=== PATIENT | male | born 1965 | race Caucasian/White ===

== ENCOUNTER 2016-05-17 15:55 | Emergency (ER) | payer BC ==
[2016-05-17 16:00] VITALS: RESP 18
--- NOTE | 2016-05-17 17:13 | XR ---
EXAMINATION TYPE: XR ankle complete LT DATE OF EXAM: 05/17/2016 4:29 PM CLINICAL HISTORY: Pain and swelling laterally after injury. TECHNIQUE: Frontal, lateral and oblique images of the left ankle are obtained. COMPARISON: None. FINDINGS: There is no acute fracture/dislocation evident in the left ankle. The ankle mortise appea rs within normal limits. Moderate soft tissue swelling over lateral malleolus is noted. IMPRESSION: There is no acute fracture or dislocation in the left ankle.
--- NOTE | 2016-05-17 17:25 | ED ---
Lower Extremity Injury HPI - General Chief Complaint: Extremity Injury, Lower Stated Complaint: Ankle Pain Source: patient Mode of arrival: ambulatory Limitations: no limitations - History of Present Illness Initial Comments: Patient is a pleasant 50-year-old male who presents for evaluation after twisting his ankle and give it while he was getting off of a tractor. Past medical hx as below. Patient stated as he stepped off of a tractor with his left leg, his left foot twisted outward when he stepped on a divot in the ground. He had instant pain to his left ankle. He dropped to the ground. Denies any head trauma or loss of consciousness. Stated that he had to collect himself because the pain was so severe. He is unable to get up and put a little bit await on it may be related to the house. Has a history of ankle fracture in the past. He states that it was not as severe as when he broke his ankle. Denies any pain to the knee. Denies fever, chills, headache, changes in vision, URI symptoms, shortness breath, cough, chest pain, nausea, vomiting, diarrhea, pain or burning with urination. - Related Data Home Medications Medication Instructions Recorded Confirmed Atorvastatin [Lipitor] 40 mg PO DAILY 07/26/14 05/17/16 Esomeprazole Magnesium [NexIUM] 20 mg PO QAM 07/26/14 05/17/16 Fexofenadine HCl [Denice Allergy] 180 mg PO QAM 07/26/14 05/17/16 Tiotropium [place] [Spiriva] 1 cap INHALATION RT-DAILY PRN 07/26/14 05/17/16 Ibuprofen [Motrin] 800 mg PO Q6HR PRN 05/17/16 05/17/16 Allergies Allergy/AdvReac Type Severity Reaction Status Date / Time No Known Allergies Allergy Verified 05/17/16 17:04 Review of Systems ROS Statement: Those systems with pertinent positive or pertinent negative responses have been documented in the HPI. ROS Other: All systems not noted in ROS Statement are negative. Past Medical History Past Medical History: Asthma, Hyperlipidemia, Osteoarthritis (OA) History of Any Multi-Drug Resistant Organisms: None Reported Past Surgical History: Orthopedic Surgery, Tonsillectomy Additional Past Surgical History / Comment(s): SHOULDER SURGERY (UNK SIDE) Past Anesthesia/Blood Transfusion Reactions: Previous Problems w/ Anesthesia Additional Past Anesthesia/Blood Transfusion Reaction / Comment(s): BECAME AGITATED, TRIED TO EXTUBATE SELF. Past Psychological History: No Psychological Hx Reported Smoking Status: Former smoker Past Alcohol Use History: None Reported Past Drug Use History: None Reported - Past Family History Father Family Medical History: Cancer, Deep Vein Thrombosis (DVT) General Exam Limitations: no limitations General appearance: alert, in no apparent distress, other (No acute distress) Head exam: Present: atraumatic, normocephalic, normal inspection Eye exam: Present: normal appearance, PERRL, EOMI. Absent: scleral icterus, conjunctival injection, periorbital swelling ENT exam: Present: normal exam, mucous membranes moist Neck exam: Present: normal inspection. Absent: tenderness, meningismus, lymphadenopathy Respiratory exam: Present: normal lung sounds bilaterally. Absent: respiratory distress, wheezes, rales, rhonchi, stridor Cardiovascular Exam: Present: regular rate, normal rhythm, normal heart sounds. Absent: systolic murmur, diastolic murmur, rubs, gallop, clicks GI/Abdominal exam: Present: soft, normal bowel sounds. Absent: distended, tenderness, guarding, rebound, rigid Extremities exam: Present: normal capillary refill, joint swelling, other ( Swelling to the lateral aspect of his left ankle. Pain with palpation of the posterior distal fibula. No pain with rotation of the midfoot. No pain at the base of the fifth metatarsal. Limited extension at the left ankle but full flexion. No pain with palpation of the distal tibia.). Absent: tenderness, pedal edema, calf tenderness Back exam: Present: normal inspection Neurological exam: Present: alert, oriented X3, CN II-XII intact Psychiatric exam: Present: normal affect, normal mood Skin exam: Present: warm, dry, intact, normal color. Absent: rash Course Vital Signs 05/17/16 15:57 Temperature 98.3 F Pulse Rate 104 H Respiratory 18 Rate Blood Pressure 128/75 O2 Sat by Pulse 98 Oximetry Medical Decision Making - Medical Decision Making Patient resents for evaluation for left ankle pain after twisting it while getting off a tractor. He took 800 mg of Motrin at home with some relief. Icing the affected area currently. We'll order plain films of the left ankle. 1720: Review plain films. No evidence of ankle fracture dislocation. Wrapped in Silverio wrap. Encouraged Tylenol and Motrin when necessary pain. Elevate. Ice to the affected area. Encouraged gentle range of motion. Close follow-up with primary care physician. Possibility that he may need physical therapy. Discussed signs and symptoms on when to return to the emergency department for further evaluation. Comfortable discharge home and follow-up. Disposition Clinical Impression: Ankle sprain Disposition: HOME SELF-CARE Condition: Good Instructions: Ankle Sprain (ED) Referrals: Michela Barlow MD [Primary Care Provider] - 1-2 days
[2016-05-17 18:00] VITALS: BP 115/74; PULSE 94; TEMP 98.4
== END 2016-05-17 18:00 | disposition home or self-care (01) ==
LOC: EC 15:55
DX: S93.402A Sprain of unspecified ligament of left ankle, initial encounter (principal); E78.5 Hyperlipidemia, unspecified; Z87.891 Personal history of nicotine dependence; Z79.899 Other long term (current) drug therapy; X50.1XXA Overexertion from prolonged static or awkward postures, initial encounter
CPT/HCPCS: 99283

== ENCOUNTER → 2018-11-05 | Outpatient (CLI) | payer OTHER ==
--- NOTE | 2018-11-05 14:02 | CT ---
EXAMINATION TYPE: CT abdomen pelvis w con DATE OF EXAM: 11/05/2018 COMPARISON: None at this location. INDICATION: Pt was seen 3 weeks ago for appendix and put on antibiotics. Follow-up DLP: 1638.30 mGycm, Automated exposure control for dose reduction was used. CONTRAST: 100 mL of Isovue 300. Study performed with Oral Contrast TECHNIQUE: Axial images were obtained from above the diaphragm to the pubic rami in the axial plane a t 5 mm thick sections. Reconstructed images are reviewed on the computer in the coronal plane. FINDINGS: Limited CT sections are obtained the lung bases. The lung bases are clear. CT ABDOMEN: There is an anterior abdominal wall hernia containing mesenteric fat. The opening is 1.8 cm. Liver: Normal Spleen: Normal Pancreas: Normal Adrenal glands: The adrenal glands are normal. Gallbladder: Normal Kidneys: No masses are evident. No hydronephrosis is present. No cysts are present. Delayed images were obtained through the kidneys, which remain unremarkable. Aorta: Vascular calcification is within the aorta. Inferior vena cava: Normal. CT PELVIS: Loops of bowel within the abdomen and pelvis are normal. There are loops of bowel which are incom pletely distended or lack oral contrast limiting their evaluation. Appendix: The appendix is not identified. No suspicious right lower quadrant inflammatory changes are evident. Fecal debris is within the ascending colon. The terminal ileum appears normal. Urinary bladder: Normal. Genitourinary structures: Prostate is slightly prominent contains calcification. Osseous structures: No suspicious lytic or sclerotic lesions. IMPRESSIONS: 1. Nonvisualization of the appendix. No suspicious inflammatory changes or dilated tubular structure s are evident. No suspicious abscess formation is evident.
== END | disposition home or self-care (01) ==
LOC: RADCTMAIN 10:54
PROVIDERS: ATTEND Internal Medicine
DX: R10.32 Left lower quadrant pain (principal)
CPT/HCPCS: 74177; Q9967